=== PATIENT | male | born 1990 | race Two or more races ===

== ENCOUNTER 2023-06-22 16:16 | Emergency (ER) | payer OTHER ==
[~2023-06-22] VITALS: Ht 165.1 cm; Wt 68.9 kg
[2023-06-22] MEDS: IV NS 0.9% 1,000 ML BAG IV ONE (17:19)
[2023-06-22 17:20] LABS: BASOPHILS % (AUTO) 0.3 % (0.0-2.0); EOSINOPHILS # (AUTO) 0.1 K/uL (0.0-0.7); EOSINOPHILS % (AUTO) 0.5 % (0.0-6.0); HEMATOCRIT 41 % (39-51); HEMOGLOBIN 13.6 g/dL (13.5-17.5); LYMPHOCYTES # (AUTO) 1.1 K/uL (0.8-4.8); LYMPHOCYTES % (AUTO) 8.6 % (20.0-44.0); MEAN CORPUSCULAR HEMOGLOBIN 29 PG (26.0-33.0); MEAN CORPUSCULAR HGB CONC 34 g/dl (31.0-36.0); MEAN CORPUSCULAR VOLUME 86 fL (80-96); MONOCYTES # (AUTO) 0.5 K/uL (0.1-1.30); MONOCYTES % (AUTO) 3.8 % (2.0-12.0); NEUTROPHILS # (AUTO) 10.8 K/uL (1.8-8.9); NEUTROPHILS % (AUTO) 86.8 % (43.0-81.0); PLATELET COUNT (AUTO) 199 K/uL (150-450); RED BLOOD CELL COUNT(AUTO) 4.71 MIL/uL (4.5-6.0); RED CELL DISTRIBUTION WIDTH 12.8 % (11.5-15.0); WHITE BLOOD COUNT (AUTO) 12.4 K/uL (4.3-11.0)
[2023-06-22] MEDS ORDERED: LORAZEPAM ORAL SOLN 2 MG/ML ORAL.CONC PO PRN (17:30)
[2023-06-22] MEDS ORDERED: LORAZEPAM 1 MG TABLET ONE (17:32)
[2023-06-22 17:34] LABS: CALCIUM, SERUM 8.8 mg/dL (8.5-10.1); CREATININE 1.1 mg/dL (0.6-1.3); POTASSIUM 4.9 mmol/L (3.5-5.1)
[2023-06-22] MEDS: LORAZEPAM 1 MG TABLET PO ONE (17:34)
[2023-06-22 19:10] VITALS: BP 118/65; TEMP 98.1; O2SAT 97
== END 2023-06-22 19:11 | disposition home or self-care (01) ==
LOC: ER 16:19
DX: R56.9 Unspecified convulsions (principal)
CPT/HCPCS: 99284; 96360; 93005; 85025; 80048; 36415; J7030